=== PATIENT | female | born 1960 | race African-American/Black ===

== ENCOUNTER 2017-08-09 11:18 | Emergency (ER) | payer MEDICAID ==
[~2017-08-09] VITALS: Ht 170.2 cm; Wt 75.0 kg
[~2017-08-09 11:18] MED LIST: ARIP10TA8 PO; FLUO20CA30 PO; TRAZ150 PO
[2017-08-09 13:29] VITALS: BP 149/85
== END 2017-08-09 14:43 | disposition home or self-care (01) ==
LOC: EMS 11:19
DX: S50.862A Insect bite (nonvenomous) of left forearm, initial encounter (principal); L03.114 Cellulitis of left upper limb; T78.40XA Allergy, unspecified, initial encounter; F12.10 Cannabis abuse, uncomplicated; Z88.0 Allergy status to penicillin; W57.XXXA Bitten or stung by nonvenomous insect and other nonvenomous arthropods, initial encounter; Y93.89 Activity, other specified; Y92.89 Other specified places as the place of occurrence of the external cause; Y99.8 Other external cause status
CPT/HCPCS: 99283

== ENCOUNTER 2017-10-18 12:10 | Emergency (ER) | payer MEDICAID ==
[~2017-10-18] VITALS: Ht 170.2 cm; Wt 78.0 kg
[2017-10-18] MEDS ORDERED: HYDROCODONE/ACETAMINOPHEN 5-325 MG TABLET PO ONE (13:00)
[2017-10-18 13:46] LABS: INFLUENZA TYPE B NEGATIVE FOR TYPE B (NEGATIVE)
[2017-10-18 16:45] VITALS: BP 129/71
== END 2017-10-18 16:47 | disposition home or self-care (01) ==
LOC: EMS 12:11
DX: J06.9 Acute upper respiratory infection, unspecified (principal); J02.8 Acute pharyngitis due to other specified organisms; B97.89 Other viral agents as the cause of diseases classified elsewhere; F12.90 Cannabis use, unspecified, uncomplicated; Z88.0 Allergy status to penicillin
CPT/HCPCS: 71020; 87430; 87804; 99285

== ENCOUNTER 2017-10-30 10:45 | Emergency (ER) | payer MEDICAID ==
[~2017-10-30] VITALS: Ht 167.6 cm; Wt 73.6 kg
[2017-10-30 12:11] LABS: BASOPHILS % (AUTO) 0.3 % (0.0-2.0); EOSINOPHILS % (AUTO) 1.4 % (1.0-6.0); HEMATOCRIT 39.1 % (36-46); HEMOGLOBIN 13.1 g/dL (12.0-16.0); LYMPHOCYTES # (AUTO) 2.1 K/uL (1.0-4.8); LYMPHOCYTES % (AUTO) 17.8 % (22.0-44.0); MEAN CORPUSCULAR HEMOGLOBIN 29.3 pg (26.0-34.0); MEAN CORPUSCULAR HGB CONC 33.6 G/dL (31.0-37.0); MEAN CORPUSCULAR VOLUME 87 fL (80-100); MONOCYTES # (AUTO) 0.6 K/uL (0.1-1.0); MONOCYTES % (AUTO) 5.3 % (2.0-9.0); NEUTROPHILS # (AUTO) 8.7 K/uL (1.8-7.7); NEUTROPHILS % (AUTO) 75.2 % (40.0-70.0); PLATELET COUNT (AUTO) 339 K/uL (150-450); RED BLOOD CELL COUNT(AUTO) 4.47 MIL/uL (4.00-5.20); RED CELL DISTRIBUTION WIDTH 14.4 % (11.5-14.5)
[2017-10-30 12:27] LABS: ANION GAP 9 mmol/L (8-16); CALCIUM, TOTAL 8.9 mg/dL (8.8-10.5); CARBON DIOXIDE 27 mmol/L (22-29); CHLORIDE 105 mmol/L (98-107); CREATININE 0.73 mg/dL (0.60-1.30); GLOMERULAR FILTR. RATE CALC > 60 mL/min (>60); GLUCOSE,RANDOM 98 mg/dL (70-110); POTASSIUM 3.8 mmol/L (3.5-5.1); SODIUM SERUM 141 mmol/L (136-145); UREA NITROGEN, BLOOD 8 mg/dL (7-18)
[2017-10-30 12:32] LABS: ALANINE AMINOTRANSFERASE 18 U/L (12-78); ALBUMIN 3.7 g/dL (3.4-5.0); ALKALINE PHOSPHATASE 85 U/L (46-116); ASPARTATE AMINOTRANSFERASE 12 U/L (15-37); BILIRUBIN,TOTAL 0.4 mg/dL (0.1-1.0); TOTAL PROTEIN, SERUM 7.4 g/dL (6.4-8.2)
[2017-10-30 13:40] VITALS: BP 165/88
== END 2017-10-30 14:45 | disposition home or self-care (01) ==
LOC: EMS 10:47
DX: F32.9 Major depressive disorder, single episode, unspecified (principal); F43.9 Reaction to severe stress, unspecified; F20.9 Schizophrenia, unspecified; F12.90 Cannabis use, unspecified, uncomplicated; Z88.0 Allergy status to penicillin; Z59.0 Homelessness
CPT/HCPCS: 36415; 80053; 85025; 99285; G0480

== ENCOUNTER 2020-11-20 14:53 | Emergency (ER) | payer MEDICAID ==
[~2020-11-20] VITALS: Ht 170.2 cm; Wt 70.5 kg
[2020-11-20] MEDS ORDERED: FAMOTIDINE 20 MG TABLET PO ONE (18:15)
[2020-11-20] MEDS ORDERED: PredniSONE 20 MG TABLET PO ONE (18:15)
[2020-11-20] MEDS ORDERED: DiphenhydrAMINE HCL 50 MG CAPSULE PO ONE (18:15)
[2020-11-20 18:19] VITALS: BP 113/73
== END 2020-11-20 18:26 | disposition home or self-care (01) ==
LOC: EMS 15:05
DX: T78.40XA Allergy, unspecified, initial encounter (principal); F32.9 Major depressive disorder, single episode, unspecified; F20.9 Schizophrenia, unspecified; F12.90 Cannabis use, unspecified, uncomplicated; Z88.0 Allergy status to penicillin; X58.XXXA Exposure to other specified factors, initial encounter
CPT/HCPCS: 99284; J7512

== ENCOUNTER 2022-09-19 09:49 | Emergency (ER) | payer MEDICAID ==
[~2022-09-19] VITALS: Ht 170.2 cm; Wt 72.7 kg
[2022-09-19 10:45] LABS: COVID AG,FIA SOURCE NASAL SWAB
[2022-09-19 11:22] LABS: INFLUENZA TYPE A NEGATIVE FOR TYPE A (NEGATIVE); INFLUENZA TYPE B NEGATIVE FOR TYPE B (NEGATIVE)
[2022-09-19] MEDS ORDERED: ACET-66 PO (12:21)
[2022-09-19] MEDS ORDERED: IBUP-1554 PO (12:21)
[2022-09-19] MEDS ORDERED: GUAIFDM PO (12:21)
[2022-09-19 12:25] VITALS: BP 146/69
== END 2022-09-19 12:44 | disposition home or self-care (01) ==
LOC: EMS 09:51
DX: J06.9 Acute upper respiratory infection, unspecified (principal); J20.9 Acute bronchitis, unspecified; Z20.822 Contact with and (suspected) exposure to COVID-19; D25.9 Leiomyoma of uterus, unspecified; F20.9 Schizophrenia, unspecified; F10.20 Alcohol dependence, uncomplicated; F12.90 Cannabis use, unspecified, uncomplicated; Z88.0 Allergy status to penicillin
CPT/HCPCS: 87804; 99283